=== PATIENT | female | born 1945 | race Caucasian/White ===

== ENCOUNTER 2018-09-24 16:27 | Emergency (ER) | payer OTHER ==
[~2018-09-24] VITALS: Ht 162.6 cm; Wt 68.1 kg
[2018-09-24] MEDS ORDERED: SOD CHLORIDE 0.9% 1,000 ML IV STA (16:31)
[2018-09-24 17:00] VITALS: Ht 162.6 cm; Wt 68.1 kg
--- NOTE | 2018-09-24 17:23 | ERD ---
ER Documentation Chief Complaint Chief Complaint HPI This is a 72-year-old woman brought in by EMS from [facility] for dy marycruz described by her who was at the bedside. She was diagnosed with a stroke last week and had dysarthria and was admitted at that time although TPA was not administered, after discharge she returned to [facility] ED about 3 days later with similar dysarthria and disequilibrium and again CT scans of the brain and MRIs revealed multiple infarcts but again the patient was not a TPA candidate and decision was made for medical management. It seems she was not a endovascular candidate as well. During last week she did have a fall and sustained a right proximal humerus fracture and was placed in an upper extremity shoulder immobilizer. was at the bedside today states she started "talking gibberish" and that lasted for about 30 minutes but improved in route. She has had a prior stroke many years ago and has chronic hemiplegia with right- sided weakness. She has had no fevers or chills, no vomiting or diarrhea, no complaints of chest pain or shortness of breath ROS All systems reviewed and are negative except as per history of present illness. Medications Home Meds Reported Medications Insulin Regular, Human (Humulin R) 100 Unit/1 Ml Vial, 0 IJ SLIDING SCALE, VIAL IF BS IS 70-180=0 UNIT,181-200=1 UNIT,201-250=2 UNITS,251-300=4 UNITS,301-350=6 UNITS,351-400=8 UNITS IF BS IS >400 CALL . 09/24/18 Nicotine* (Nicotine* Patch) Unknown Strength Patch, 14 MG TD DAILY, PATCH START DATE 10/19/18 END DATE 11/02/18 09/24/18 Nicotine* (Nicotine* Patch) 7 mg/day Patch, 1 PATCH TD DAILY, PATCH START DATE 11/03/18 END DATE 11/17/18 09/24/18 Acetaminophen* (Tylenol*) 325 Mg Tablet, 650 MG PO Q6H PRN for MILD PAIN LEVEL 1-3, TAB 09/24/18 Hydrocodone/Acetaminophen ([place] 5-325 Tablet) 1 Each Tablet, 1 EACH PO Q8H, TAB 09/24/18 Atorvastatin* (Atorvastatin*) 80 Mg Tablet, 80 MG PO QHS, #30 TAB 09/24/18 Calcium Carbonate/Vitamin D3 (Calcium 600 + Vit D 200 Tablet) 1 Each Tablet, 1 EACH PO BID, TAB 09/24/18 Cholecalciferol* (Vitamin D3*) 1,000 Unit Tablet, 1000 UNIT PO DAILY, TAB 09/24/18 Sennosides* (Senna Lax*) 8.6 Mg Tablet, 1 TAB PO QHS, TAB 09/24/18 Clopidogrel Bisulfate (Clopidogrel) 75 Mg Tablet, 75 MG PO DAILY, #30 TAB 09/24/18 Nicotine* (Nicotine* Patch) 21 mg/day Patch, 1 EACH TD DAILY, PATCH START DATE 09/20/18 END DATE 10/18/18 09/24/18 Magnesium Hydroxide* (Milk Of Magnesia*) 400 Mg/5 Ml Oral.susp, 30 ML PO NEEDED for CONSTIPATION, ML 09/24/18 Glipizide* (Glipizide*) 10 Mg Tablet, 20 MG PO AC BREAKFAST DINNER, TAB 09/24/18 Na Phos,M-B/Na Phos,Di-Ba (Fleet Enema Extra) 230 Ml Enema, 118 ML RC NEEDED, ENEMA 09/24/18 Bisacodyl* (Bisacodyl*) 10 Mg Supp, 10 MG MN NEEDED for CONSTIPATION, SUPP 09/24/18 Docusate Sodium* (Colace*) 100 Mg Capsule, 100 MG PO BID, #60 CAP 09/24/18 Citalopram Hydrobromide* (Celexa*) 10 Mg Tablet, 10 MG PO DAILY, #30 TAB 09/24/18 Aspirin* (Aspirin* EC) 81 Mg Tablet.dr, 81 MG PO DAILY, TAB 09/24/18 [place]-3/Dha/Epa/Fish Oil (Fish Oil 500 mg Softgel) 1 Each Capsule, 2 EACH PO BID, CAP 09/24/18 Allergies Allergies: Coded Allergies: No Known Allergy (Unverified , 09/24/18) PMhx/Soc History of CVA with hemiplegia and right-sided weakness, hypertension, diabetes mellitus, CKD, tobacco smoker, hyperlipidemia, recent stroke with dysarthria and MRI/MRA is revealing multiple cerebral infarcts and proximal left ICA stenosis FmHx Family History: diabetes Physical Exam Vitals Vital Signs Date Temp Pulse Resp B/P (MAP) Pulse Ox O2 O2 Flow FiO2 Time Delivery Rate 09/24/18 98.3 68 20 140/103 97 Room Air 21:45 (115) 09/24/18 77 24 137/83 95 Room Air 18:54 (101) 09/24/18 98.3 76 20 100/74 96 17:00 (83) Physical Exam Const: No acute distress, afebrile, well-developed well-nourished HEENT: Dehydrated, pink conjunctive, no cervical spine deformity or tenderness Resp: Clear to auscultation bilaterally Cardio: Regular rate and rhythm, no murmurs Abd: Soft, non tender, non distended. Skin: No petechiae or rashes Back: No midline or flank tenderness Ext: No cyanosis, or edema Neur: Awake and alert x2, able to answer simple questions and follow simple commands, right-sided paresis consistent with history, pupils equal round reactive to light Psych: Normal Mood and Affect Result Diagram: 09/24/18 1654 09/24/18 1653 Results 24 hrs Laboratory Tests Test 09/24/18 16:53 09/24/18 16:54 09/24/18 17:03 Prothrombin Time 13.0 Sec Prothrombin Time Ratio 1.0 INR International 0.97 Normalized Ratio Activated Partial Thromboplast 29.7 Sec Time Sodium Level 137 mmol/L Potassium Level 4.7 mmol/L Chloride Level 104 mmol/L Carbon Dioxide Level 24 mmol/L Anion Gap 9 Blood Urea Nitrogen 33 mg/dl Creatinine 1.27 mg/dl Est Glomerular Filtrat 42 mL/min Rate mL/min Glucose Level 186 mg/dl Calcium Level 8.8 mg/dl Total Bilirubin 0.7 mg/dl Direct Bilirubin 0.00 mg/dl Indirect Bilirubin 0.7 mg/dl Aspartate Amino 17 IU/L Transf (AST/SGOT) Alanine 12 IU/L Aminotransferase (ALT/SGPT) Alkaline Phosphatase 102 IU/L Troponin I < 0.012 ng/ml Total Protein 6.1 g/dl Albumin 3.4 g/dl Globulin 2.70 g/dl Albumin/Globulin Ratio 1.25 Lipase 75 U/L White Blood Count 8.4 10^3/ul Red Blood Count 4.55 10^6/ul Hemoglobin 13.4 g/dl Hematocrit 40.7 % Mean Corpuscular Volume 89.5 fl Mean Corpuscular Hemoglobin 29.5 pg Mean Corpuscular 32.9 g/dl Hemoglobin Concent Red Cell Distribution Width 13.4 % Platelet Count 189 10^3/UL Mean Platelet Volume 11.7 fl Immature Granulocytes % 1.000 % Neutrophils % 73.1 % Lymphocytes % 14.7 % Monocytes % 7.4 % Eosinophils % 3.3 % Basophils % 0.5 % Nucleated Red Blood Cells % 0.0 /100WBC Immature Granulocytes # 0.080 10^3/ul Neutrophils # 6.1 10^3/ul Lymphocytes # 1.2 10^3/ul Monocytes # 0.6 10^3/ul Eosinophils # 0.3 10^3/ul Basophils # 0.0 10^3/ul Nucleated Red Blood Cells # 0.0 10^3/ul Urine Color YELLOW Urine Clarity CLEAR Urine pH 6.0 Urine Specific [place] 1.014 Urine Ketones NEGATIVE mg/dL Urine Nitrite NEGATIVE mg/dL Urine Bilirubin NEGATIVE mg/dL Urine Urobilinogen NEGATIVE mg/dL Urine Leukocyte Esterase NEGATIVE Nithya/ul Urine Microscopic RBC 0 /HPF Urine Microscopic WBC 1 /HPF Urine Hemoglobin NEGATIVE mg/dL Urine Glucose NEGATIVE mg/dL Urine Total Protein 2+ mg/dl Current Medications Medications Dose Sig/Arianna Start Time Status Last (Trade) Ordered Route PRN Stop Time Admin Dose Reason Admin Sodium 1,000 ml @ Q1H STAT 09/24/18 DC 09/24/18 Chloride 1,000 mls/hr IV 16:31 09/24/18 17:08 17:30 Procedures/MDM IV line was established patient was placed on hardware engineer rhythm strip revealed a sinus rhythm at about 80 bpm with upright P and T waves. Patient was afebrile EKG performed, read by me: 78 bpm, normal sinus rhythm, normal axis, no acute ST segment changes, narrow QRS complex, with good R-wave progression in precordial leads. Chest X-ray 1V Interpreted by me: Soft Tissue: No acute abnormalities Bones: No acute abnormalities Mediastinum/Cardiac Silhouette/Lungs: No acute abnormalities CT scan of the brain was performed, IMPRESSION: 1. Multiple old bilateral frontal lobe, anterior corpus callosum, basal ganglia, left insular cortex/subinsular tracts and anterior left parietal infarcts. 2. Involutional changes slightly greater than expected for age. 3. No acute intracranial hemorrhage or subdural collection. Patient was dehydrated and I administered 1 L normal saline IV x1. CBC was within normal limits, electrolytes revealed mild dehydration, liver function tests normal, troponin negative, urinalysis negative for infection I spoke to [facility] physician regarding the patient's presentation, symptomatology, CT scan findings, and family's concern. He kindly agreed to admission and transfer, [facility] authorization #[id number] Departure Diagnosis: Primary Impression: TIA (transient ischemic attack) Additional Impressions: Bilateral carotid artery stenosis Dysarthria Hypertension Hypertension type: essential hypertension Qualified Codes: I10 - Essential (primary) hypertension Dehydration Condition: PAMELA Rajan MD Sep 24, 2018 17:23
[2018-09-24] MEDS ORDERED: ASPI-817 PO (18:04)
[2018-09-24] MEDS ORDERED: CITA10TA10 PO (18:04)
[2018-09-24] MEDS ORDERED: OMEG-144 PO (18:04)
[2018-09-24] MEDS ORDERED: BISA10SU75 PR (18:05)
[2018-09-24] MEDS ORDERED: DOCU-144 PO (18:05)
[2018-09-24] MEDS ORDERED: NA P230E RC (18:06)
[2018-09-24] MEDS ORDERED: GLIP10TA14 PO (18:07)
[2018-09-24] MEDS ORDERED: MAGN400O19 PO (18:07)
[2018-09-24] MEDS ORDERED: NICO-546 TD ×2 (18:08→18:15)
[2018-09-24] MEDS ORDERED: CLOP75TA27 PO (18:08)
[2018-09-24] MEDS ORDERED: CHOL100062 PO (18:09)
[2018-09-24] MEDS ORDERED: SENN-120 PO (18:09)
[2018-09-24] MEDS ORDERED: CALC1TAB98 PO (18:11)
[2018-09-24] MEDS ORDERED: ATOR-2 PO (18:11)
[2018-09-24] MEDS ORDERED: HYDR-4011 PO (18:11)
[2018-09-24] MEDS ORDERED: ACET325T33 PO (18:12)
[2018-09-24] MEDS ORDERED: NICO-544 TD (18:15)
[2018-09-24] MEDS ORDERED: INSU100V3 IJ (18:19)
[2018-09-24 21:45] VITALS: BP 140/103; PULSE 68; RESP 20
== END 2018-09-24 21:45 | disposition short-term general hospital (02) ==
LOC: E/R 16:27
DX: G45.9 Transient cerebral ischemic attack, unspecified (principal); E86.0 Dehydration; E11.9 Type 2 diabetes mellitus without complications; I12.9 Hypertensive chronic kidney disease with stage 1 through stage 4 chronic kidney disease, or unspecified chronic kidney disease; N18.9 Chronic kidney disease, unspecified; Z86.73 Personal history of transient ischemic attack (TIA), and cerebral infarction without residual deficits; Z79.84 Long term (current) use of oral hypoglycemic drugs
CPT/HCPCS: 36415; 70450; 71045; 80053; 81001; 83690; 84484; 85025; 85610; 85730; 87086; 99285; J7030